=== PATIENT | female | born 1940 | race Caucasian/White ===

== ENCOUNTER 2019-01-03 09:35 | Emergency (ER) | payer MEDICARE, OTHER ==
--- NOTE | 2019-01-03 10:48 | ED ---
Complex/Multi-Sys Presentation - HPI Summary HPI Summary: This patient is a 78 year old F BIBA to ED via EMS with concern for poor living conditions and possible altered mental status. Patient states that she called the police that she was unable to use her car secondary to a flat tire and therefore was unable to get food. Per pattient, she lives alone at home with her two dogs and a cat. Her son, Cory, lives in [place]. Normally, she drives herself around and takes care of herself, but she states she called the ambulance because she has a flat tire. States that sometimes she is forgetful, but denies any other symptoms. Patient denies myalgia, arthralgia. No recent falls. - History Of Current Complaint Chief Complaint: EDPsychosocial Time Seen by Provider: 01/03/19 09:49 Hx Obtained From: Patient Onset/Duration: Lasting Weeks - 2 weeks, Still Present Timing: Constant Severity Currently: Mild Severity Initially: Mild Aggravating Factor(s): Nothing Alleviating Factor(s): Nothing Associated Signs And Symptoms: Positive: Confusion, Other - Mild forgetfulness, negative myalgia/arthralgia - Allergies/Home Medications Allergies/Adverse Reactions: Allergies Allergy/AdvReac Type Severity Reaction Status Date / Time perfumes Allergy Wheezing Uncoded 01/03/19 09:51 PMH/Surg Hx/FS Hx/Imm Hx Endocrine/Hematology History: Denies: Hx Diabetes Cardiovascular History: Denies: Hx Hypertension, Hx Pacemaker/ICD Respiratory History: Reports: Hx Chronic Obstructive Pulmonary Disease (COPD), Other Respiratory Problems/Disorders - ON OXYGEN Denies: Hx Asthma History: Denies: Hx Dialysis, Hx Renal Disease Musculoskeletal History: Reports: Hx Osteoporosis Sensory History: Denies: Hx Hearing Aid Psychiatric History: Denies: Hx Panic Disorder - Cancer History Hx Chemotherapy: No Hx Radiation Therapy: No - Surgical History Surgery Procedure, Year, and Place: RT OVARY REMOVED TWISTED INTESTINE SURGERY RT CYST REMOVED FROM INDEX FINGER, cataracts Infectious Disease History: No Infectious Disease History: Denies: Traveled Outside the [place] in Last 30 Days - Family History Known Family History: Positive: Non-Contributory - Social History Alcohol Use: Rare Hx Substance Use: No Substance Use Type: Reports: None Hx Tobacco Use: Yes Smoking Status (MU): Former Smoker Review of Systems Negative: Arthralgia, Myalgia Neurological: Other - Confusion, mild forgetfulness All Other Systems Reviewed And Are Negative: Yes Physical Exam - Summary Physical Exam Summary: Constitutional: Elderly female no acute distress Skin: Warm, Dry HENT: Normocephalic; Atraumatic Eyes: Conjunctiva normal Neck: Musculoskeletal ROM normal neck. (-) JVD, (-) Stridor, (-) Nuchal rigidity Cardio: Rhythm regular, rate normal, Heart sounds normal; Intact distal pulses; Radial pulses are 2+ and symmetric. (-) Murmur Pulmonary/Chest wall: Effort normal. (-) Respiratory distress, (-) Wheezes, (-) Rales Abd: Soft, (-) tenderness, (-) Distension, (-) Guarding, (-) Rebound Musculoskeletal: (-) Edema Lymph: (-) Cervical adenopathy Neuro: Alert, Oriented x3, CN 2-12 intact, strength 5 out of 5 bilateral upper and bilateral lower extremities, SILT, no dysmetria. Ambulates w steady gait Psych: Mood and affect Normal GCS: 15 Triage Information Reviewed: Yes Vital Signs On Initial Exam: Initial Vitals Pulse BP Pulse Ox 70 150/106 95 01/03/19 09:40 01/03/19 09:40 01/03/19 09:40 Vital Signs Reviewed: Yes Diagnostics - Vital Signs Vital Signs Temp Pulse Resp BP Pulse Ox 01/03/19 10:11 80 163/91 94 01/03/19 10:06 74 97 01/03/19 09:47 97.2 F 65 16 150/106 97 01/03/19 09:40 70 150/106 95 - Laboratory Result Diagrams: 01/03/19 11:01 01/03/19 11:01 Lab Statement: Any lab studies that have been ordered have been reviewed, and results considered in the medical decision making process. - Radiology CXR Radiology Interpretation Completed By: Radiologist Summary of Radiographic Findings: Stigmata of obstructive lung disease. No acute pulmonary or cardiac process evident. Dr. Garcia has reviewed this radiology report. - CT Brain CT Interpretation Completed By: Radiologist Summary of CT Findings: #. No acute intracranial process evident. #. Mild involutional change and stigmata of chronic small vessel ischemic disease. Dr. Garcia has reviewed this radiology report. - EKG 1017 Cardiac Rate: NL - 71 BPM EKG Rhythm: Sinus Rhythm Summary of EKG Findings: NSR at 71 BPM, unable to determine further secondary to poor quality. 1023 Cardiac Rate: NL - 94 BPM EKG Rhythm: Sinus Rhythm Summary of EKG Findings: NSR at 94 BPM, prolonged QTc at 508. Re-Evaluation - Re-Evaluation First Eval Re-Evaluation Time: 12:55 Comment: Patient's neighbors are concerned about her welfare and ability to take care of herself. Second Eval Re-Evaluation Time: 13:10 Comment: Called [facility] bland concern for wellfare, he will come to hospital to get his mother Third Eval Re-Evaluation Time: 14:02 Comment: Son Cory and [id number] are at bedside. They will take patient home and clean up her living situation and get her food. UA with trace LE, neg nitrite, +squamous cells. She is not confused, no evidence of UTI on history, will wait for culture before treating. Complex Multi-Symp Course/Dx Course Of Treatment: 78-year-old female who presents with concern for altered mental status and poor living conditions. Physical exam with an elderly female in no acute distress. Patient alert and oriented 3. Reports possible intermittent confusion over the past 2 weeks. Will work up for causes of altered mental status and contact family. Given that this patient has normal O2 , BG, hypoxia and hypoglycemia/DKA less likely. DDx still includes: electrolyte abnl, thyroid issues, infection/sepsis, hypothermia, uremia, trauma , encephalopathy/encephalitis, psych, stroke, SAH. Will check labs, head ct, urine, ekg, cxr. Reassess. will d/w home health care social worker and contact sonCory regarding welfare. - Diagnoses Provider Diagnoses: Dirty living conditions, Elderly person living alone, Confusion - Physician Notifications Discussed Care Of Patient With: Form Builder Helper Time Discussed With Above Provider: 12:55 Instructed by Provider To: Other - Discussed patient case with a home health care social worker regarding whether the patient will be a social admit or if she can go home. Discharge - Sign-Out/Discharge Documenting (check all that apply): Patient Departure - Discharge Patient Received Moderate/Deep Sedation with Procedure: No - Discharge Plan Condition: Stable Disposition: HOME Patient Education Materials: Fall Prevention for Older Adults (ED) Referrals: Blane Carrasco MD [Primary Care Provider] - Additional Instructions: You were seen in the emergency department for concern for your mental status, as well as poor living conditions. Your head CT did not show any abnormalities. Your labs showed a mild elevated thyroid study for which you can follow up with your primary care doctor. We sent a urine culture, if this grows bacteria they'll call you for antibiotics. If any studies were not completed at the time of discharge you will be called with the relevant results. Please follow up with your primary care doctor in next 2-3 days and return to emergency department for worsening or concerning symptoms. - Billing Disposition and Condition Condition: STABLE Disposition: Home - Attestation Statements Document Initiated by Delisa: Yes Documenting Scribe: Gustavo Medina Provider For Whom Delisa is Documenting (Include Credential): Heidy Garcia MD Scribe Attestation: IGustavo, scribed for Heidy Garcia MD on 01/03/19 at 1423. Scribe Documentation Reviewed: Yes Provider Attestation: The documentation as recorded by the Gustavo roger accurately reflects the service I personally performed and the decisions made by , Heidy Garcia MD Status of Scribe Document: Viewed
[2019-01-03 11:08] LABS: ABS Basophils 0.1 10^3/ul (0-0.2); ABS Eosinophils 0.1 10^3/ul (0-0.6); ABS Monocytes 0.6 10^3/ul (0-0.8); ABS Neutrophils 4.8 10^3/ul (1.5-7.7); Eosinophil % 1.7 %; Hematocrit 45 % (35-47); Hemoglobin 15.5 g/dL (12.0-16.0); Lymphocyte % 15.6 %; Mean Corpuscular HGB Conc 35 g/dL (31-36); Mean Corpuscular Hemoglobin 30 pg (27-31); Mean Corpuscular Volume 86 fL (80-97); Mean Platelet Volume 7.3 fL (7.4-10.4); Nucleated Red Blood Cells % 0.2; Platelet Count 237 10^3/uL (150-450); Red Blood Count 5.23 10^6 /uL (3.70-4.87); Red Cell Distribution Width 13 % (10-15); White Blood Count 6.6 10^3/uL (3.5-10.8)
[2019-01-03 11:25] LABS: ALT 8 U/L (7-52); AST 18 U/L (13-39); Albumin 4.3 g/dL (3.2-5.2); Alkaline Phosphatase 109 U/L (34-104); Anion Gap 9 mmol/L (2-11); BUN/Creatinine Ratio 14.6 (8-20); Blood Urea Nitrogen 13 mg/dL (6-24); CO2 Carbon Dioxide 23 mmol/L (22-32); Calcium 9.9 mg/dL (8.6-10.3); Chloride 105 mmol/L (101-111); EGFR Non-African American 61.2 (>60); Globulin 2.2 g/dL (2-4); Glucose 98 mg/dL (70-100); Potassium 3.6 mmol/L (3.5-5.0); Sodium 137 mmol/L (135-145); Total Protein 6.5 g/dL (6.4-8.9)
[2019-01-03 11:50] LABS: Acetaminophen < 15 mcg/mL; Alcohol < 10 mg/dL (<10); Salicylate < 2.50 mg/dL (<30)
[2019-01-03 12:07] LABS: TSH (Thyroid Stimulating Horm) 6.05 mcIU/mL (0.34-5.60)
[2019-01-03 12:57] LABS: Urine Appearance Cloudy; Urine Bacteria Absent (Absent); Urine Bilirubin Negative (Negative); Urine Blood 1+ (Negative); Urine Color Yellow; Urine Glucose Negative (Negative); Urine Ketones Negative (Negative); Urine Nitrite Negative (Negative); Urine Protein Negative (Negative); Urine Red Blood Cell Trace(0-2/hpf) (Absent); Urine Specific Gravity 1.014 (1.010-1.030); Urine Squamous Epithelial Cell Present (Absent); Urine Urobilinogen Negative (Negative); Urine White Blood Cell 1+(6-10/hpf) (Absent)
[2019-01-03 13:21] LABS: Free T4 1.13 ng/dL (0.61-1.12)
[2019-01-03 14:16] VITALS: BP 131/78
== END 2019-01-03 14:25 | disposition home or self-care (01) ==
LOC: ED 09:35
DX: R41.0 Disorientation, unspecified (principal); Z59.1 Inadequate housing; J44.9 Chronic obstructive pulmonary disease, unspecified; Z87.891 Personal history of nicotine dependence; Z99.81 Dependence on supplemental oxygen
CPT/HCPCS: 36415; 70450; 71045; 80053; 80320; 80329; 81003; 81015; 83605; 84439; 84443; 84484; 85025; 87086; 93005; 99283; G0480

== ENCOUNTER 2020-05-20 13:30 | Inpatient (IN) ==
[2020-05-20 15:04] LABS: ABS Basophils 0.1 10^3/ul (0-0.2); ABS Eosinophils 0.1 10^3/ul (0-0.6); ABS Monocytes 0.3 10^3/ul (0-0.8); ABS Neutrophils 1.8 10^3/ul (1.5-7.7); Eosinophil % 3.2 %; Hematocrit 41 % (35-47); Hemoglobin 14.1 g/dL (12.0-16.0); Lymphocyte % 30.9 %; Mean Corpuscular HGB Conc 34 g/dL (31-36); Mean Corpuscular Hemoglobin 30 pg (27-31); Mean Corpuscular Volume 87 fL (80-97); Mean Platelet Volume 7.6 fL (7.4-10.4); Nucleated Red Blood Cells % 0.2; Platelet Count 226 10^3/uL (150-450); Red Blood Count 4.73 10^6 /uL (3.70-4.87); Red Cell Distribution Width 13 % (10-15); White Blood Count 3.3 10^3/uL (3.5-10.8)
[2020-05-20 15:23] LABS: ALT 6 U/L (7-52); AST 12 U/L (13-39); Albumin 3.8 g/dL (3.2-5.2); Albumin/Globulin Ratio 1.8 (1-3); Alkaline Phosphatase 83 U/L (34-104); Anion Gap 7 mmol/L (2-11); BUN/Creatinine Ratio 20.5 (8-20); Blood Urea Nitrogen 18 mg/dL (6-24); C Reactive Protein 1.06 mg/L (<8.01); CO2 Carbon Dioxide 26 mmol/L (22-32); Calcium 9.4 mg/dL (8.6-10.3); Chloride 109 mmol/L (101-111); Creatine Kinase 35 U/L (10-223); EGFR African American 74.6 (>60); EGFR Non-African American 61.7 (>60); Globulin 2.1 g/dL (2-4); Glucose 80 mg/dL (70-100); Magnesium 1.9 mg/dL (1.9-2.7); Potassium 3.4 mmol/L (3.5-5.0); Sodium 142 mmol/L (135-145); Total Protein 5.9 g/dL (6.4-8.9)
[2020-05-20 15:39] LABS: Troponin I 0.03 ng/mL (<0.03)
[2020-05-20 15:52] LABS: Acetaminophen < 15 mcg/mL; Alcohol, S < 10 mg/dL (<10); Salicylate < 2.50 mg/dL (<30)
[2020-05-20 16:26] LABS: Urine Appearance Clear; Urine Bilirubin Negative (Negative); Urine Blood Negative (Negative); Urine Color Yellow; Urine Glucose Negative (Negative); Urine Ketones Negative (Negative); Urine Nitrite Negative (Negative); Urine Protein Negative (Negative); Urine Urobilinogen Negative (Negative)
[2020-05-20] MEDS ORDERED: Albuterol HFA INHALER 8 gm MDI INH PRN (18:40)
[2020-05-20 20:23] LABS: Urine Benzodiazepine Screen Presumptive Positive (None Detect); Urine Cannabinoids Screen None Detected (None Detect); Urine Opiates Screen None Detected (None Detect)
[2020-05-20 20:27] LABS: TSH Ultra Thyroid Stim Horm 2.69 mcIU/mL (0.34-5.60)
[2020-05-20 20:38] LABS: Folate 5.19 ng/mL (>3.99)
[2020-05-20 20:39] LABS: Vitamin B12 181 pg/mL (180-914)
[2020-05-20 20:59] LABS: Troponin I 0.03 ng/mL (<0.03)
[2020-05-20] MEDS: Potassium Chlor 20 meq TAB.ER PO SCH ×2 (21:43→21:50)
[2020-05-20] MEDS: Enoxaparin 40 MG/0.4 ML SYR SUBCUT SCH (21:51)
[2020-05-20 23:35] LABS: Troponin I 0.03 ng/mL (<0.03)
[2020-05-21] MEDS: Potassium Chlor 20 meq TAB.ER PO SCH ×3 (00:22→16:23)
[2020-05-21 02:55] LABS: Troponin I 0.03 ng/mL (<0.03)
[2020-05-21 06:21] LABS: ABS Eosinophils 0.2 10^3/ul (0-0.6); ABS Lymphocytes 1.2 10^3/ul (1.0-4.8); ABS Monocytes 0.4 10^3/ul (0-0.8); ABS Neutrophils 1.7 10^3/ul (1.5-7.7); Eosinophil % 6.3 %; Hematocrit 42 % (35-47); Hemoglobin 14.7 g/dL (12.0-16.0); Lymphocyte % 35.1 %; Mean Corpuscular HGB Conc 35 g/dL (31-36); Mean Corpuscular Hemoglobin 30 pg (27-31); Mean Corpuscular Volume 86 fL (80-97); Mean Platelet Volume 7.5 fL (7.4-10.4); Nucleated Red Blood Cells % 0.3; Platelet Count 216 10^3/uL (150-450); Red Blood Count 4.92 10^6 /uL (3.70-4.87); Red Cell Distribution Width 14 % (10-15); White Blood Count 3.5 10^3/uL (3.5-10.8)
[2020-05-21 06:35] LABS: BUN/Creatinine Ratio 18.8 (8-20); Calcium 9.3 mg/dL (8.6-10.3); EGFR African American 83.3 (>60); EGFR Non-African American 68.8 (>60); Potassium 4.5 mmol/L (3.5-5.0)
[2020-05-21 06:48] LABS: Troponin I 0.03 ng/mL (<0.03)
[2020-05-21] MEDS: SPIRIVA Respimat (tiotropium) 2.5 mcg/inh Inhaler INH SCH (09:29)
[2020-05-22] MEDS: Enoxaparin 40 MG/0.4 ML SYR SUBCUT SCH ×2 (00:22→19:32)
[2020-05-22] MEDS: SPIRIVA Respimat (tiotropium) 2.5 mcg/inh Inhaler INH SCH (11:16)
[2020-05-23] MEDS: SPIRIVA Respimat (tiotropium) 2.5 mcg/inh Inhaler INH SCH (09:55)
[2020-05-23] MEDS: Magnesium Hydroxide LIQ 30 ML UDC PO PRN (15:34)
[2020-05-23] MEDS: Enoxaparin 40 MG/0.4 ML SYR SUBCUT SCH (22:32)
[2020-05-24] MEDS: SPIRIVA Respimat (tiotropium) 2.5 mcg/inh Inhaler INH SCH (10:44)
[2020-05-24] MEDS: Enoxaparin 40 MG/0.4 ML SYR SUBCUT SCH ×2 (17:53→17:55)
[2020-05-25] MEDS: SPIRIVA Respimat (tiotropium) 2.5 mcg/inh Inhaler INH SCH (09:30)
[2020-05-25] MEDS: Magnesium Hydroxide LIQ 30 ML UDC PO PRN (12:29)
[2020-05-25] MEDS: Enoxaparin 40 MG/0.4 ML SYR SUBCUT SCH (18:12)
[2020-05-26] MEDS: SPIRIVA Respimat (tiotropium) 2.5 mcg/inh Inhaler INH SCH (09:49)
[2020-05-26] MEDS: Enoxaparin 40 MG/0.4 ML SYR SUBCUT SCH (18:33)
[2020-05-27] MEDS: SPIRIVA Respimat (tiotropium) 2.5 mcg/inh Inhaler INH SCH (09:07)
[2020-05-27] MEDS: Magnesium Hydroxide LIQ 30 ML UDC PO PRN (17:46)
[2020-05-27] MEDS: Enoxaparin 40 MG/0.4 ML SYR SUBCUT SCH (19:28)
[2020-05-28] MEDS: Magnesium Hydroxide LIQ 30 ML UDC PO PRN ×2 (08:43→15:21)
[2020-05-28] MEDS: SPIRIVA Respimat (tiotropium) 2.5 mcg/inh Inhaler INH SCH (08:45)
[2020-05-28] MEDS: Cyanocobalamin INJ 1,000 MCG/ML VIAL 1 ML VIAL IM SCH (10:51)
[2020-05-28] MEDS: Enoxaparin 40 MG/0.4 ML SYR SUBCUT SCH (17:47)
[2020-05-29] MEDS: SPIRIVA Respimat (tiotropium) 2.5 mcg/inh Inhaler INH SCH (11:59)
[2020-05-29] MEDS: Enoxaparin 40 MG/0.4 ML SYR SUBCUT SCH (20:28)
[2020-05-30] MEDS: SPIRIVA Respimat (tiotropium) 2.5 mcg/inh Inhaler INH SCH (10:41)
[2020-05-30] MEDS: Enoxaparin 40 MG/0.4 ML SYR SUBCUT SCH (19:59)
[2020-05-31] MEDS: SPIRIVA Respimat (tiotropium) 2.5 mcg/inh Inhaler INH SCH (09:29)
[2020-05-31] MEDS: Enoxaparin 40 MG/0.4 ML SYR SUBCUT SCH (21:39)
[2020-06-01] MEDS: SPIRIVA Respimat (tiotropium) 2.5 mcg/inh Inhaler INH SCH (08:36)
[2020-06-01] MEDS: Enoxaparin 40 MG/0.4 ML SYR SUBCUT SCH (21:17)
[2020-06-02] MEDS: SPIRIVA Respimat (tiotropium) 2.5 mcg/inh Inhaler INH SCH (09:15)
[2020-06-02] MEDS: Magnesium Hydroxide LIQ 30 ML UDC PO PRN (12:58)
[2020-06-02] MEDS: Enoxaparin 40 MG/0.4 ML SYR SUBCUT SCH (19:06)
[2020-06-03] MEDS: SPIRIVA Respimat (tiotropium) 2.5 mcg/inh Inhaler INH SCH (10:20)
[2020-06-03] MEDS: Enoxaparin 40 MG/0.4 ML SYR SUBCUT SCH (21:09)
[2020-06-04] MEDS: SPIRIVA Respimat (tiotropium) 2.5 mcg/inh Inhaler INH SCH (07:43)
[2020-06-04] MEDS: Cyanocobalamin INJ 1,000 MCG/ML VIAL 1 ML VIAL IM SCH (09:50)
[2020-06-04] MEDS: Enoxaparin 40 MG/0.4 ML SYR SUBCUT SCH (22:58)
[2020-06-05] MEDS: SPIRIVA Respimat (tiotropium) 2.5 mcg/inh Inhaler INH SCH (16:55)
[2020-06-06] MEDS: Enoxaparin 40 MG/0.4 ML SYR SUBCUT SCH ×2 (02:15→19:03)
[2020-06-06] MEDS: SPIRIVA Respimat (tiotropium) 2.5 mcg/inh Inhaler INH SCH (10:56)
[2020-06-06 23:37] VITALS: BP 111/59
[2020-06-07] MEDS: SPIRIVA Respimat (tiotropium) 2.5 mcg/inh Inhaler INH SCH (08:18)
== END 2020-06-07 11:20 | DRG 884 ==
LOC: SSU 13:30 → ED 13:30 → OBSVTOIN 19:24 → SSU 21:25
PROVIDERS: ADMIT Internal Medicine; ATTEND Internal Medicine

== ENCOUNTER 2024-06-09 07:37 | Inpatient (IN) ==
[2024-06-09] MEDS ORDERED: Ondansetron 4 mg VIAL 2 MG/ML 2 ml VIAL IV PRN (23:20)
[2024-06-10 01:03] LABS: ABS Eosinophils 0.1 10^3/uL (0.0-0.5); ABS Lymphocytes 1.1 10^3/uL (1.0-4.8); ABS Monocytes 0.9 10^3/uL (0.0-0.9); ABS Neutrophils 3.9 10^3/uL (1.5-7.6); ABS Nucleated RBC 0.01 10^3/ul; Eosinophil % 2.2 %; Hematocrit 39.5 % (35-45); Hemoglobin 13.8 g/dL (11.5-14.3); Lymphocyte % 17.8 %; Mean Corpuscular Hemoglobin 31.5 pg (27-33); Mean Corpuscular Hgb Conc 34.9 g/dL (31-36); Mean Corpuscular Volume 90.4 fL (80-97); Nucleated Red Blood Cells % 0.1 %/100WBC (0.0-0.8); Platelet Count 187 10^3/uL (150-450); Red Blood Count 4.38 10^6/uL (3.63-4.92); Red Cell Distribution Width 12.9 % (12-17)
[2024-06-10 01:29] LABS: Calcium 9.3 mg/dL (8.6-10.3); Creatinine, Serum 0.64 mg/dL (0.51-0.95); Magnesium 1.9 mg/dL (1.9-2.7); eGFR CKD-EPI 86.5 (>60)
[2024-06-10] MEDS: Senna TAB 8.6 mg TAB PO SCH (11:36)
[2024-06-10] MEDS ORDERED: Dexamethasone IV 4 MG/ML VIAL 1 ml VIAL ONE (11:49)
[2024-06-10] MEDS ORDERED: Ondansetron 4 mg VIAL 2 MG/ML 2 ml VIAL ONE (11:49)
[2024-06-10] MEDS ORDERED: fentaNYL 100 mcg/2 ml 50 MCG/ML VIAL ONE (11:49)
[2024-06-10] MEDS ORDERED: Lidocaine 2% PF 5 ML VIAL ONE (11:49)
[2024-06-10] MEDS ORDERED: Propofol 10 MG/ML 20 ML BTL ONE (11:49)
[2024-06-10] MEDS ORDERED: Naloxone 0.4 mg VIAL 0.4 mg/ml 1 ml VIAL IV PRN (11:53)
[2024-06-10] MEDS ORDERED: fentaNYL 100 mcg/2 ml 50 MCG/ML VIAL IV PRN (11:53)
[2024-06-10] MEDS ORDERED: Ondansetron 4 mg VIAL 2 MG/ML 2 ml VIAL IV PRN (11:53)
[2024-06-10] MEDS ORDERED: NS 0.45% 1000 ml BAG 1,000 ML IV SCH (12:00)
[2024-06-10] MEDS: Lactated Ringers 1000 ml BAG 1,000 ML IV SCH ×2 (12:03→16:04)
[2024-06-10] MEDS ORDERED: ceFAZolin 2 GM PREMIX 2 GM/50 ML BAG ONE (12:39)
[2024-06-10] MEDS ORDERED: Sulfur Hexaflouride MICROSPHR 25 MG VIAL IV PRN (12:51)
[2024-06-10] MEDS ORDERED: Calcium Carb (TUMS) 500 mg CHEW TAB PO PRN (15:37)
[2024-06-10] MEDS ORDERED: Morphine 2 MG/ML SYRINGE IV PRN (15:37)
[2024-06-10] MEDS ORDERED: Ondansetron ODT 4 mg TAB 4 MG TAB PO PRN (15:37)
[2024-06-10] MEDS ORDERED: Magnesium Hydroxide LIQ 30 ML UDC PO PRN (15:37)
[2024-06-10] MEDS: Buffered Lidocaine 1% SYRIN 1 ml INTRADERM ONE (15:55)
[2024-06-10] MEDS: Acetaminophen IV 1 GM/100ML 1,000 MG/100 ML BAG IV ONE (15:55)
[2024-06-10] MEDS: ceFAZolin 2 GM PREMIX 2 GM/50 ML BAG IV SCH (20:23)
[2024-06-10] MEDS: Magnesium Hydroxide LIQ 30 ML UDC PO SCH (20:23)
[2024-06-11 06:14] LABS: ABS Lymphocytes 0.6 10^3/uL (1.0-4.8); ABS Monocytes 1.2 10^3/uL (0.0-0.9); ABS Nucleated RBC 0.01 10^3/ul; Eosinophil % 0.4 %; Hematocrit 33.3 % (35-45); Hemoglobin 11.8 g/dL (11.5-14.3); Lymphocyte % 8.3 %; Mean Corpuscular Hemoglobin 32.3 pg (27-33); Mean Corpuscular Hgb Conc 35.3 g/dL (31-36); Mean Corpuscular Volume 91.5 fL (80-97); Mean Platelet Volume 8.4 fL (7.5-11.2); Nucleated Red Blood Cells % 0.1 %/100WBC (0.0-0.8); Platelet Count 167 10^3/uL (150-450); Red Blood Count 3.64 10^6/uL (3.63-4.92); Red Cell Distribution Width 12.8 % (12-17); White Blood Count 6.7 10^3/uL (3.8-11.8)
[2024-06-11 06:44] LABS: Albumin 3.5 g/dL (3.5-5.7); Albumin/Globulin Ratio 1.8 (1-3); Calcium 8.6 mg/dL (8.6-10.3); Creatinine, Serum 0.69 mg/dL (0.51-0.95); Globulin 1.9 g/dL (2-4); Potassium 4.6 mmol/L (3.5-5.0); Total Bilirubin 0.7 mg/dL (0.2-1.0); Total Protein 5.4 g/dL (6.4-8.9)
[2024-06-11 10:29] LABS: Magnesium 1.8 mg/dL (1.9-2.7)
[2024-06-11] MEDS: Vitamin THERAPEUTIC TAB PO SCH (10:34)
[2024-06-11] MEDS: Magnesium Sulfate 2 gm BAG 2 GM/50 ML BAG IVPB ONE (10:49)
[2024-06-11 11:46] LABS: Magnesium 1.9 mg/dL (1.9-2.7)
[2024-06-11 11:57] LABS: TSH Ultra Thyroid Stim Horm 2.1 mcIU/mL (0.34-5.60)
[2024-06-11] MEDS: Enoxaparin 40 MG/0.4 ML SYR SUBCUT SCH (14:06)
[2024-06-12 06:23] LABS: ABS Eosinophils 0.3 10^3/uL (0.0-0.5); ABS Lymphocytes 1.3 10^3/uL (1.0-4.8); ABS Monocytes 0.8 10^3/uL (0.0-0.9); Eosinophil % 5.5 %; Hematocrit 29.3 % (35-45); Hemoglobin 10.3 g/dL (11.5-14.3); Lymphocyte % 23.9 %; Mean Corpuscular Hemoglobin 31.9 pg (27-33); Mean Corpuscular Volume 91.2 fL (80-97); Mean Platelet Volume 8.3 fL (7.5-11.2); Platelet Count 159 10^3/uL (150-450); Red Blood Count 3.21 10^6/uL (3.63-4.92); Red Cell Distribution Width 12.8 % (12-17); White Blood Count 5.4 10^3/uL (3.8-11.8)
[2024-06-12 07:42] LABS: Calcium 8.2 mg/dL (8.6-10.3); Creatinine, Serum 0.61 mg/dL (0.51-0.95); Phosphorus 2.9 mg/dL (2.5-5.0); Potassium 4.4 mmol/L (3.5-5.0); eGFR CKD-EPI 87.6 (>60)
[2024-06-17 10:58] VITALS: BP 134/65
[2024-06-17 12:19] LABS: Rapid COVID-19 Molecular Undetected (Undetected)
== END 2024-06-17 13:45 | DRG 482 ==
LOC: ED 07:37 → EDHOLD 23:20 → SUATTDRO 23:20 → SSU 06-10 01:53
PROVIDERS: ADMIT Student in an Organized Health Care Education/Training Program; ATTEND Student in an Organized Health Care Education/Training Program